=== PATIENT | male | born 2000 | race Caucasian/White ===

== ENCOUNTER 2020-11-15 01:48 | Emergency (ER) | payer OTHER, SELFPAY | END 2020-11-15 09:04 | disposition home or self-care (01) | LOC: CSHERS 01:48 | DX: S01.01XA Laceration without foreign body of scalp, initial encounter (principal); F10.129 Alcohol abuse with intoxication, unspecified; W01.10XA Fall on same level from slipping, tripping and stumbling with subsequent striking against unspecified object, initial encounter | CPT/HCPCS: 12001 ==